=== PATIENT | female | born 1935 | race Caucasian/White ===

== ENCOUNTER 2018-03-25 13:46 | Observation (INO) | payer OTHER ==
[~2018-03-25] VITALS: Ht 160 cm; Wt 61.2 kg
[~2018-03-25 13:46] MED LIST: CO Q-10100 MG PO; CRANBERRY PLUS1 EAC1 PO; DULCOLAX5 MG PO; GLIPIZIDE XL5 MG PO; GLIPIZIDE5 MG PO; GUMMI BEAR MUL1 EACH PO; LASIX20 MG PO; LEVAQUIN500 MG PO; LEVOFLOXACIN500 MG PO; LIDODERM 5% P1 PATCH TD; LIPITOR20 MG PO; LO-DOSE ASPIRIN81 M1 PO; PEPCID20 MG PO; PROBIOTIC GUMMY PO; PROBIOTIC-10 370 MG PO; VITAMIN D35000 UNIT PO
[2018-03-25 14:29] LABS: HEMATOCRIT 33.5 % (36.0-46.0); HEMOGLOBIN 11.3 G/DL (11.9-15.5); MCH 32.8 PG (29.0-34.0); MCHC 33.7 G/DL (30.0-36.0); MCV 97.4 FL (83-99); PLATELET COUNT 192 K/uL (156-360); RBC DIS.WIDTH-CV 13.2 % (11.8-14.6); RED BLOOD COUNT 3.44 M/uL (3.80-5.20); WHITE BLOOD COUNT 8.2 K/uL (4.1-10.2)
[2018-03-25 14:38] LABS: ALBUMIN 3.5 g/dL (3.2-4.8)
[2018-03-25 14:39] LABS: CHLORIDE 110 mEq/L (99-109); POTASSIUM 4.4 mEq/L (3.7-5.4); SODIUM 140 mEq/L (136-147)
[2018-03-25 14:41] LABS: GLUCOSE 262 mg/dL (70-99); TOTAL PROTEIN 6.8 g/dL (6.4-8.3)
[2018-03-25 14:43] LABS: TOTAL BILIRUBIN 0.5 mg/dL (0.0-1.0)
[2018-03-25 14:44] LABS: ALKALINE PHOSPHATASE 86 IU/L (3-129)
[2018-03-25 14:45] LABS: CREATININE 2.4 mg/dL (0.6-1.3); GFR ESTIMATE (CALCULATED) 20 mL/min/
[2018-03-25 14:46] LABS: AST (GOT) 11 IU/L (2-34); UREA NITROGEN (BUN) 80 mg/dL (9-23)
[2018-03-25 14:48] LABS: ALT (GPT) 9 IU/L (3-49)
[2018-03-25 14:51] LABS: TROP-I INTERPRETATION NEGATIVE; TROPONIN-I 0.04 ng/mL (0.0-0.30)
[2018-03-25] MEDS ORDERED: ALLOPURINOL100 MG PO (18:32)
[2018-03-25] MEDS ORDERED: IRON325 M1 PO (18:32)
[2018-03-25] MEDS ORDERED: ASCORBIC ACID500 M1 PO (18:33)
[2018-03-25] MEDS ORDERED: CALCITRIOL0.25 MCG PO (18:33)
[2018-03-25] MEDS ORDERED: METOPROLOL SUCC25 MG PO (18:34)
[2018-03-25 21:30] VITALS: BP 177/74
[2018-03-25 22:15] LABS: TROP-I INTERPRETATION NEGATIVE; TROPONIN-I 0.04 ng/mL (0.0-0.30)
[2018-03-25 22:19] LABS: HDL CHOLESTEROL 32 MG/DL (Desirable>=50); LDL CHOLESTEROL 102 mg/dL (Desirable<100); NON-HDL CHOLESTEROL 143 mg/dL (Desirable<160); TOTAL CHOLESTEROL 175 mg/dL (Desirable<200); TRIGLYCERIDES 203 MG/DL (Normal: <150)
[2018-03-26 03:10] LABS: TROP-I INTERPRETATION NEGATIVE; TROPONIN-I 0.03 ng/mL (0.0-0.30)
[2018-03-26 03:44] VITALS: BP 146/65
[2018-03-26 07:12] LABS: BASOPHIL (%) 0.6 % (0-1); EOSINOPHIL (%) 4.4 % (0-5); EOSINOPHIL COUNT 0.3 K/uL (0-0.3); HEMATOCRIT 31.6 % (36.0-46.0); HEMOGLOBIN 10.2 G/DL (11.9-15.5); IMMATURE GRANULOCYTE (%) 0.4 % (0.0-0.7); LYMPHOCYTE (%) 34.6 % (15-42); LYMPHOCYTE COUNT 2.5 K/uL (1.0-2.8); MCH 31.9 PG (29.0-34.0); MCHC 32.3 G/DL (30.0-36.0); MCV 98.8 FL (83-99); MONOCYTE (%) 6.8 % (3-12); MONOCYTE COUNT 0.5 K/uL (0-0.8); NEUTROPHIL (%) 53.2 % (45-76); NEUTROPHIL COUNT 3.9 K/uL (1.8-6.4); PLATELET COUNT 175 K/uL (156-360); RBC DIS.WIDTH-CV 13.3 % (11.8-14.6); RBC DIS.WIDTH-SD 48.3 % (39-53); WHITE BLOOD COUNT 7.2 K/uL (4.1-10.2)
[2018-03-26 07:36] LABS: ALBUMIN 2.9 G/DL (3.2-4.8); ALKALINE PHOSPHATASE 73 IU/L (3-129); ALT (GPT) 7 IU/L (3-49); AST (GOT) 10 IU/L (2-34); CHLORIDE 113 MEQ/L (99-109); CREATININE 2.2 MG/DL (0.6-1.3); DIRECT BILIRUBIN 0.1 mg/dL (0.0-0.3); GFR ESTIMATE (CALCULATED) 23 mL/min/; GLUCOSE 245 mg/dL (70-99); POTASSIUM 4.4 MEQ/L (3.7-5.4); SODIUM 137 MEQ/L (136-147); TOTAL BILIRUBIN 0.3 MG/DL (0.0-1.0); TOTAL PROTEIN 5.5 G/DL (6.4-8.3); UREA NITROGEN (BUN) 78 mg/dL (9-23)
[2018-03-26 08:30] VITALS: BP 142/60
[2018-03-26 11:56] LABS: HEMOGLOBIN A1c (GLYCOHEMOGLOB) 9.5 % (Below 5.7)
[2018-03-26 12:07] VITALS: BP 174/75
[2018-03-26 15:19] VITALS: BP 132/66
== END 2018-03-26 17:42 | disposition home or self-care (01) ==
LOC: EME 13:46 → EDOF 19:00 → ENRESERV 19:04 → 4SOUTH 21:05 → ENPENDDIS 03-26 16:39 → 4SOUTH 03-26 17:42
PROVIDERS: Emergency Medicine Emergency Medical Services; Hospitalist
DX: R55 Syncope and collapse (principal); G25.0 Essential tremor; I42.9 Cardiomyopathy, unspecified; I13.0 Hypertensive heart and chronic kidney disease with heart failure and stage 1 through stage 4 chronic kidney disease, or unspecified chronic kidney disease; N18.4 Chronic kidney disease, stage 4 (severe); E11.22 Type 2 diabetes mellitus with diabetic chronic kidney disease; I50.9 Heart failure, unspecified; I25.2 Old myocardial infarction; I44.0 Atrioventricular block, first degree; I45.10 Unspecified right bundle-branch block; M71.21 Synovial cyst of popliteal space [Baker], right knee; Z86.73 Personal history of transient ischemic attack (TIA), and cerebral infarction without residual deficits; R56.9 Unspecified convulsions; R60.0 Localized edema; E78.5 Hyperlipidemia, unspecified; I25.10 Atherosclerotic heart disease of native coronary artery without angina pectoris; Z86.19 Personal history of other infectious and parasitic diseases; G31.84 Mild cognitive impairment of uncertain or unknown etiology; D64.9 Anemia, unspecified; I08.1 Rheumatic disorders of both mitral and tricuspid valves; E11.65 Type 2 diabetes mellitus with hyperglycemia; G91.2 (Idiopathic) normal pressure hydrocephalus; Z87.440 Personal history of urinary (tract) infections; Z84.1 Family history of disorders of kidney and ureter; Z82.49 Family history of ischemic heart disease and other diseases of the circulatory system; Z88.8 Allergy status to other drugs, medicaments and biological substances; Z79.84 Long term (current) use of oral hypoglycemic drugs; Z79.82 Long term (current) use of aspirin
CPT/HCPCS: 70450; 70551; 71045; 80048; 80053; 80061; 80076; 81003; 82948; 83036; 84484; 85025; 85027; 93005; 93970; 99281; 99285; G0378; G8978 GP CI; G8979 GP CI; G8980 GP CI; J1644